=== PATIENT | female | born 1995 | race Hispanic/Latino ===

== ENCOUNTER 2019-04-18 17:14 | Emergency (ER) | payer OTHER ==
[2019-04-18 17:24] VITALS: RESP 16; O2SAT 98
--- NOTE | 2019-04-18 18:08 | ED PDOC ---
HPI: General Adult Time Seen by Provider: 04/18/19 17:39 Chief Complaint (Nursing): Abnormal Labs Chief Complaint (Provider): abnormal labs History Per: Patient History/Exam Limitations: no limitations Additional Complaint(s): 23 y/o F with hx of ADHD who presents for evaluation of abnormal routine labs and back pain. Pt states that she went for routine labs on 04/14/19. She was called by the lab stating that she needed to be seen by a physician EMMA due to Cr. 4.76, BUN 36. Pt states that her urine was very dark the day that she had her labs drawn and that she has made a conscious effort to drink more fluids. She presented to an urgent care center today b/c of continued mild lower back pain and concern for abnormal labs and was referred to ER for further evaluation. Denies fever, chills, dysuria, urinary frequency/hesitancy, hx of kidney stones or autoimmune disease. No excess exercise or N/V, diarrhea. Past Medical History Reviewed: Historical Data, Nursing Documentation, Vital Signs Vital Signs: Last Vital Signs Temp 98.2 F 04/18/19 17:20 Pulse 77 04/18/19 17:20 Resp 16 04/18/19 17:20 BP 109/69 04/18/19 17:20 Pulse Ox 98 04/18/19 17:20 Primary Care Provider: Jeanette Escobar - Medical History Other PMH: ADHD - Family History Family History: States: Unknown Family Hx - Allergies Allergies/Adverse Reactions: Allergies Allergy/AdvReac Type Severity Reaction Status Date / Time No Known Allergies Allergy Verified 04/18/19 17:20 Review of Systems Constitutional: Negative for: Fever Respiratory: Negative for: Cough, Shortness of Breath Gastrointestinal: Negative for: Nausea, Vomiting, Abdominal Pain, Diarrhea Genitourinary Female: Negative for: Dysuria, Frequency Physical Exam - Reviewed Nursing Documentation Reviewed: Yes Vital Signs Reviewed: Yes - Physical Exam Appears: Positive for: Well Skin: Positive for: Normal Color Neck: Positive for: Normal Cardiovascular/Chest: Positive for: Regular Rate, Rhythm Respiratory: Positive for: Normal Breath Sounds Gastrointestinal/Abdominal: Positive for: Normal Exam Back: Positive for: Normal Inspection, Other (mild lumbar paravertebral tenderness B/L). Negative for: L CVA Tenderness, R CVA Tenderness, Vertebral Tenderness, Decreased ROM Neurological/Psych: Positive for: Awake, Alert, Oriented - Laboratory Results Result Diagrams: 04/18/19 18:11 04/18/19 18:11 - ECG O2 Sat by Pulse Oximetry: 98 Medical Decision Making Medical Decision Making: CBC, CMP, U/A, CPK Labs normal, Cr. 0.6, BUN 11, U/A unremarkable. Patient informed of lab results and advised to follow up early next week with her PMD for re-evaluation of pos sible need for further studies for back pain. Results from 04/14 were possibly due to lab error. Pt advised to hydrate and to take Tylenol over Ibuprofen for back pain. Patient in agreement with plan. Disposition - Clinical Impression Clinical Impression: Abnormal laboratory test, Low back pain - Patient ED Disposition Is Patient to be Admitted: No - Disposition Referrals: Daphne Mahoney MD [Medical Doctor] - Disposition: Routine/Home Disposition Time: 19:30 Condition: STABLE Additional Instructions: Follow up with your primary care doctor early next week for follow up. Take Tylenol or Ibuprofen for back pain. Return to ER if you are unable to urinate. Instructions: Low Back Pain (DC) Forms: [facility] ([facility]ana) Print Language: GUINEAN
[2019-04-18 18:19] LABS: SQUAMOUS EPITHIAL < 1 /hpf (0-5); URINE BACTERIA RARE (<OCC); URINE BILIRUBIN NEGATIVE (NEGATIVE); URINE BLOOD NEGATIVE (NEGATIVE); URINE CLARITY CLEAR (Clear); URINE COLOR COLORLESS (YELLOW); URINE GLUCOSE (UA) NEG (NEGATIVE); URINE LEUKOCYTE ESTERASE NEG Leu/uL (Negative); URINE PROTEIN NEGATIVE (NEGATIVE); URINE UROBILINOGEN 0.2-1.0 mg/dL (0.2-1.0)
[2019-04-18 18:21] LABS: BASO % 0.7 % (0.0-2.0); EOS # 0.1 K/uL (0.0-0.7); EOS % 1.1 % (0.0-4.0); HEMOGLOBIN 12.1 g/dL (12.0-16.0); LYMPH # 1.4 K/uL (1.0-4.3); LYMPH % 25.3 % (20.0-40.0); MEAN CELL VOLUME 84.5 fl (81.0-99.0); MEAN CORPUSCULAR HEMOGLOBIN 28.3 pg (27.0-31.0); MEAN CORPUSCULAR HGB CONC 33.5 g/dL (33.0-37.0); MEAN PLATELET VOLUME 9.4 fl (7.2-11.7); MONO # 0.4 K/uL (0.0-0.8); MONO % 6.9 % (0.0-10.0); NEUT # 3.6 K/uL (1.8-7.0); NRBC % 0.1 % (0.0-0.0); RBC 4.27 Mil/uL (3.80-5.20); RED CELL DISTRIBUTION WIDTH 14.3 % (11.5-14.5); WHITE BLOOD COUNT 5.5 K/uL (4.8-10.8)
[2019-04-18 18:29] LABS: ALB/GLOB RATIO 1.6 (1.0-2.1); ALBUMIN 4.3 g/dL (3.5-5.0); ALT/SGPT 19 U/L (9-52); AST/SGOT 28 U/L (14-36); BLOOD UREA NITROGEN 11 mg/dl (7-17); CALCIUM 9.2 mg/dL (8.4-10.2); GFR NON-AFRICAN AMERICAN > 60
[2019-04-18 19:59] VITALS: BP 118/74; PULSE 72; TEMP 98
== END 2019-04-18 19:58 | disposition home or self-care (01) ==
LOC: H.ER 17:14
DX: R79.9 Abnormal finding of blood chemistry, unspecified (principal); M54.5 Low back pain; F90.9 Attention-deficit hyperactivity disorder, unspecified type